=== PATIENT | male | born 1985 | race Caucasian/White ===

== ENCOUNTER 2017-08-05 11:29 | Emergency (ER) | payer SELFPAY ==
[~2017-08-05] VITALS: Wt 72.1 kg
[2017-08-05] MEDS ORDERED: BEN25 PO (13:28)
[2017-08-05] MEDS ORDERED: PRED50TA PO (13:28)
[2017-08-05] MEDS ORDERED: CLIN-73 PO (13:28)
--- NOTE | 2017-08-05 13:30 | ERD ---
ER Documentation Chief Complaint Chief Complaint REDNESS/SWELLING ON THROAT, ONSET 1 DAY HPI Patient is a 32-year-old male who is taking linezolid for cellulitis which she has been taking for 5 days and then today he developed a red rash on his bilateral hands. No swelling of his hands. No redness. No fever. Only itchiness. No swelling of his lips or tongue or difficulty breathing but he has had a sore throat. No cough. ROS All systems reviewed and are negative except as per history of present illness. Medications Home Meds Active Scripts Prednisone* (Prednisone*) 50 Mg Tablet, 50 MG PO DAILY for 4 Days, TAB Prov:CIRO ALEGRE PA-C 08/05/17 Clindamycin Hcl* (Clindamycin Hcl*) 300 Mg Capsule, 300 MG PO TID for 10 Days, CAP Prov:CIRO ALEGRE PA-C 08/05/17 Diphenhydramine Hcl* (Benadryl*) 25 Mg Cap, 25 MG PO Q6, #30 CAP Prov:CIRO ALEGRE PA-C 08/05/17 PMhx/Soc Medical and Surgical Hx: pt denies Medical Hx History of Surgery: Yes (appendectomy) Anesthesia Reaction: No Hx Neurological Disorder: No Hx Respiratory Disorders: No Hx Cardiac Disorders: No Hx Psychiatric Problems: No Hx Alcohol Use: Yes (social) Hx Substance Use: Yes Hx Tobacco Use: No Smoking Status: Former smoker FmHx Family History: No diabetes Physical Exam Vitals Vital Signs Date Time Temp Pulse Resp B/P Pulse Ox O2 Delivery O2 Flow Rate FiO2 08/05/17 11:35 98.7 98 17 132/77 100 Physical Exam Const: [] Head: Atraumatic Eyes: Normal Conjunctiva ENT: Normal External Ears, Nose and Mouth. Neck: Full range of motion..~ No meningismus. Resp: Clear to auscultation bilaterally Cardio: Regular rate and rhythm, no murmurs Skin: Bilateral dorsal surface of the hands are erythematous, no palmar erythema, no warmth, no swelling Procedures/MDM Patient presents with rash on his hands possibly allergic reaction to the antibiotics he is taking. His vital signs are normal and is otherwise well- appearing. Reviewed the case with Dr. Menard and we decided to change the antibiotic to clindamycin and also given prescription for prednisone and Benadryl. Patient counseled regarding my diagnostic impression and care plan. Prior to discharge all questions answered. Pt agrees with treatment plan and understands strict return precautions. Pt is instructed to follow up with primary care provider within 24-48 hours. Precautionary instructions provided including instructions to return to the ER if not improving or for any worsening or changing symptoms or concerns. Departure Diagnosis: Primary Impression: Rash Condition: Stable Patient Instructions: Self-Care for Skin Rashes Additional Instructions: Call your primary care doctor TOMORROW for an appointment during the next 1-2 days.See the doctor sooner or return here if your condition worsens before your appointment time. CIRO ALEGRE PA-C Aug 05, 2017 13:30
== END 2017-08-05 13:57 | disposition home or self-care (01) ==
LOC: FTE 11:29
DX: R21 Rash and other nonspecific skin eruption (principal); Z87.891 Personal history of nicotine dependence
CPT/HCPCS: 99284